=== PATIENT | female | born 1985 | race African-American/Black ===

== ENCOUNTER 2017-04-15 20:13 | Emergency (ER) | payer MEDICAID ==
[~2017-04-15] VITALS: Ht 172.7 cm; Wt 117.9 kg
[~2017-04-15 20:13] MED LIST: GUAIFENESIN-CO118 M1 ORAL; NYQUIL D COLD295 M1 PO; PREDNISONE20 MG ORAL
[2017-04-15] MEDS ORDERED: CLARITIN-D 121 EAC1 ORAL (20:23)
[2017-04-15 20:40] VITALS: BP 121/69
[2017-04-15] MEDS ORDERED: Morphine Sulfate 4mg/ml Inj IVP ONE (20:45)
[2017-04-15] MEDS ORDERED: Metoclopramide 10mg/2ml Inj IVP ONE (20:45)
[2017-04-15 20:53] LABS: BASOPHILS % (AUTO) 0.7 % (0.0-2.0); EOSINOPHILS % (AUTO) 0.1 % (0.0-3.0); LYMPHOCYTES % (AUTO) 13.3 % (20.0-45.0); MEAN CORPUSCULAR HEMOGLOBIN 26.9 PG (27.0-31.0); MEAN CORPUSCULAR HGB CONC 32.8 G/DL (32.0-36.0); MEAN CORPUSCULAR VOLUME 82 FL (80-99); MEAN PLATELET VOLUME 7.3 FL (6.5-10.1); MONOCYTES % (AUTO) 4.2 % (1.0-10.0); NEUTROPHILS % (AUTO) 81.7 % (45.0-75.0); PLATELET COUNT 232 K/UL (150-450); RED BLOOD COUNT 4.66 M/UL (4.20-5.40); RED CELL DISTRIBUTION WIDTH 13.9 % (11.6-14.8); WHITE BLOOD COUNT 15.1 K/UL (4.8-10.8)
[2017-04-15 21:02] LABS: APPEARANCE,URINE CLEAR; KETONES,URINE NEGATIVE (NEGATIVE); LEUKOCYTE ESTERASE ,URINE 1+ (NEGATIVE); NITRITE,URINE NEGATIVE (NEGATIVE); PH,URINE 6 (4.5-8.0); PROTEIN,URINE NEGATIVE (NEGATIVE); UROBILINOGEN,URINE NORMAL MG/DL (0.0-1.0)
[2017-04-15 21:12] LABS: ALANINE AMINOTRANSFERASE 9 U/L (3-33); ALBUMIN/GLOBULIN RATIO 1.2 (1.0-2.7); ANION GAP 11 (5-15); ASPARTATE AMINO TRANSFERASE 14 U/L (5-40); CALCIUM 9.2 mg/dL (8.6-10.2); CARBON DIOXIDE 25 mEQ/L (20-30); CHLORIDE 97 mEQ/L (98-107); CREATININE 0.9 mg/dL (0.5-0.9); GLOMERULAR FILTRATION RATE > 60 mL/min (>60); HEMOLYSIS 3; LIPASE 15 U/L (< 60); POTASSIUM 3.9 mEQ/L (3.4-4.9); SODIUM 133 mEQ/L (135-145); TOTAL PROTEIN 7.4 g/dL (6.6-8.7)
[2017-04-15 21:15] LABS: RBC,URINE 0-2 /HPF (0 - 2)
[2017-04-15 21:16] LABS: BACTERIA,URINE OCCASIONAL /HPF; SQUAMOUS EPITHELIAL CELL,UR MODERATE /LPF (NONE/OCC)
[2017-04-15 21:56] VITALS: BP 123/66
--- NOTE | 2017-04-15 21:56 | Emergency Room Report ---
History of Present Illness General Chief Complaint: Abdominal Pain Source: Patient (ROMEO DELVALLE M.D.) Present Illness HPI 31-year-old female presents to ER complaining of abdominal pain. States pain started yesterday. Mid abdomen, sharp, 8/10, nonradiating. Denies fevers chills. Denies nausea or vomiting. Denies dysuria or hematuria. No other aggravating or relieving factors. Denies any other associated symptoms (ROMEO DELVALLE M.D.) Allergies: Coded Allergies: No Known Allergies (Unverified , 11/27/13) Patient History Past Medical History: none Past Surgical History: none Pertinent Family History: none Social History: Denies: alcohol use, drug use, smoking Last Menstrual Period: 04/06/17 Now: No : 4 Para: 4 Immunizations: UTD Reviewed Nursing Documentation: PMH: Agreed, PSxH: Agreed (ROMEO DELVALLE M.D.) Nursing Documentation-PMH Past Medical History: No Stated History (ROMEO DELVALLE M.D.) Review of Systems All Other Systems: negative except mentioned in HPI (ROMEO DELVALLE M.D.) Physical Exam Vital Signs Date Time Temp Pulse Resp B/P Pulse Ox O2 Delivery O2 Flow Rate FiO2 04/15/17 20:19 100.2 115 18 121/69 98 Room Air Sp02 EP Interpretation: reviewed, normal General Appearance: no apparent distress, alert, GCS 15, non-toxic, obese Head: normocephalic, atraumatic Eyes: bilateral eye PERRL, bilateral eye normal inspection ENT: hearing grossly normal, normal pharynx, no angioedema, normal voice Neck: full range of motion, supple/symm/no masses Respiratory: chest non-tender, lungs clear, normal breath sounds, speaking full sentences Cardiovascular #1: regular rate, rhythm, no edema Cardiovascular #2: 2+ carotid (R), 2+ carotid (L), 2+ radial (R), 2+ radial (L) , 2+ dorsalis pedis (R), 2+ dorsalis pedis (L) Gastrointestinal: normal bowel sounds, soft, non-distended, no guarding, no rebound, tenderness Rectal: deferred Genitourinary: normal inspection, no CVA tenderness Musculoskeletal: back normal, gait/station normal, normal range of motion, non- tender Neurologic: alert, oriented x3, responsive, motor strength/tone normal, sensory intact, speech normal Psychiatric: judgement/insight normal, memory normal, mood/affect normal, no suicidal/homicidal ideation Reflexes: 3+ bicep (R), 3+ bicep (L), 3+ tricep (R), 3+ tricep (L), 3+ knee (R) , 3+ knee (L) Skin: normal color, no rash, warm/dry, well hydrated Lymphatic: no adenopathy (ROMEO DELVALLE M.D.) Medical Decision Making Diagnostic Impression: Primary Impression: Enteritis Labs Test 04/15/17 20:45 White Blood Count 15.1 K/UL (4.8-10.8) Red Blood Count 4.66 M/UL (4.20-5.40) Hemoglobin 12.5 G/DL (12.0-16.0) Hematocrit 38.1 % (37.0-47.0) Mean Corpuscular Volume 82 FL (80-99) Mean Corpuscular Hemoglobin 26.9 PG (27.0-31.0) Mean Corpuscular Hemoglobin Concent 32.8 G/DL (32.0-36.0) Red Cell Distribution Width 13.9 % (11.6-14.8) Platelet Count 232 K/UL (150-450) Mean Platelet Volume 7.3 FL (6.5-10.1) Neutrophils (%) (Auto) 81.7 % (45.0-75.0) Lymphocytes (%) (Auto) 13.3 % (20.0-45.0) Monocytes (%) (Auto) 4.2 % (1.0-10.0) Eosinophils (%) (Auto) 0.1 % (0.0-3.0) Basophils (%) (Auto) 0.7 % (0.0-2.0) Urine Color Pale yellow Urine Appearance Clear Urine pH 6 (4.5-8.0) Urine Specific [place] 1.005 (1.005-1.035) Urine Protein Negative (NEGATIVE) Urine Glucose (UA) Negative (NEGATIVE) Urine Ketones Negative (NEGATIVE) Urine Occult Blood Negative (NEGATIVE) Urine Nitrite Negative (NEGATIVE) Urine Bilirubin Negative (NEGATIVE) Urine Urobilinogen Normal MG/DL (0.0-1.0) Urine Leukocyte Esterase 1+ (NEGATIVE) Urine RBC 0-2 /HPF (0 - 2) Urine WBC 2-4 /HPF (0 - 2) Urine Squamous Epithelial Cells Moderate /LPF (NONE/OCC) Urine Bacteria Occasional /HPF (NONE) Urine HCG, Qualitative Negative Sodium Level 133 mEQ/L (135-145) Potassium Level 3.9 mEQ/L (3.4-4.9) Chloride Level 97 mEQ/L (98-107) Carbon Dioxide Level 25 mEQ/L (20-30) Anion Gap 11 (5-15) Blood Urea Nitrogen 10 mg/dL (7-23) Creatinine 0.9 mg/dL (0.5-0.9) Estimat Glomerular Filtration Rate > 60 mL/min (>60) Glucose Level 115 mg/dL (74-106) Calcium Level 9.2 mg/dL (8.6-10.2) Total Bilirubin 0.5 mg/dL (0.0-1.2) Aspartate Amino Transf (AST/SGOT) 14 U/L (5-40) Alanine Aminotransferase (ALT/SGPT) 9 U/L (3-33) Alkaline Phosphatase 79 U/L (35-104) Total Protein 7.4 g/dL (6.6-8.7) Albumin 4.1 g/dL (3.5-5.2) Globulin 3.3 g/dL Albumin/Globulin Ratio 1.2 (1.0-2.7) Lipase 15 U/L (< 60) (ROMEO DELVALLE M.D.) ER Course Received signout from Dr Alexandre to review CTAP and re-eval CTAP: c/w enteritis Labs with 15K leuks Still with abd cramping, nausea Additional meds given in ED Will DX with abx given leuks Rx Pepcid as well PMD followup as needed BRAT diet (AURORA ESTRADA M.D.) Last Vital Signs Date Time Temp Pulse Resp B/P Pulse Ox O2 Delivery O2 Flow Rate FiO2 04/15/17 20:40 100.2 18 121/69 98 Room Air 04/15/17 20:19 115 (ROMEO DELVALLE M.D.) Status: improved (AURORA ESTRADA M.D.) Disposition: HOME, SELF-CARE Scripts Famotidine (PEPCID) 20 Mg Tablet 20 MG ORAL BID for 7 Days, #14 TAB 0 Refills Prov: AURORA ESTRADA M.D. 04/15/17 Ciprofloxacin Hcl* (CIPROFLOXACIN HCL*) 500 Mg Tablet 500 MG ORAL Q12H for 7 Days, #14 TAB 0 Refills Prov: AURORA ESTRADA M.D. 04/15/17 Metronidazole* (FLAGYL*) 500 Mg Tablet 500 MG ORAL THREE TIMES A DAY for 7 Days, #21 TAB 0 Refills Prov: AURORA ESTRADA M.D. 04/15/17 Referrals: [facility],REF (PCP) ROMEO DELVALLE M.D. Apr 15, 2017 21:56 AURORA ESTRADA M.D. Apr 15, 2017 23:54
[2017-04-15] MEDS ORDERED: CIPROFLOXACIN500 M2 ORAL (22:30)
[2017-04-15] MEDS ORDERED: METRONIDAZOLE500 MG ORAL (22:30)
[2017-04-15] MEDS ORDERED: PEPCID20 MG ORAL (22:32)
[2017-04-15] MEDS ORDERED: Famotidine 20 MG/ 2ML VIAL IVP ONE (22:45)
[2017-04-15 22:46] VITALS: BP 143/73
--- NOTE | 2017-04-16 09:13 | Diagnostic Imaging Report ---
Indication: Abdominal pain Technique: Continuous helical transaxial imaging of the abdomen and pelvis was obtained from the lung bases to the pubic symphysis during intravenous contrast administration. Coronal 2-D reformats were also obtained. Study obtained in a Siemens sensation [address] Total Dose length Product (DLP): [address] Dose Index Volume (CTDIvol): 19 mGy Comparison: None Findings: The lung bases are clear. Solid organs including the liver, pancreas, spleen and kidneys appear normal. Gallbladder is unremarkable. Mildly distended loops of fluid-filled small bowel are noted. Enteritis is possible. Bladder and uterus noted and grossly unremarkable. No free fluid or free air identified. Partial visualization of a normal appendix demonstrated. The study is limited due to body habitus related artifact. Impression: Possible enteritis. Please correlate clinically. Limited evaluation due to body habitus issues The CT scanner at [facility] is accredited by the [employer] and the scans are performed using dose optimization techniques as appropriate to a performed exam including Automatic Exposure control.
== END 2017-04-15 22:46 | disposition home or self-care (01) ==
LOC: EMR 21:03
DX: K52.9 Noninfective gastroenteritis and colitis, unspecified (principal)
CPT/HCPCS: 36415; 74177; 80053; 81003; 81025; 83690; 85025; 96374; 96375; 99284; J2270; J2765; Q9967

== ENCOUNTER 2017-08-06 09:14 | Emergency (ER) | payer MEDICAID ==
[~2017-08-06] VITALS: Ht 172.7 cm; Wt 106.6 kg
[~2017-08-06 09:14] MED LIST changes: +CIPROFLOXACIN500 M2 ORAL; +CLARITIN-D 121 EAC1 ORAL; +METRONIDAZOLE500 MG ORAL; +PEPCID20 MG ORAL
[2017-08-06] MEDS ORDERED: FERROUS SULFAT325 MG ORAL (09:23)
[2017-08-06 09:37] LABS: APPEARANCE,URINE CLEAR; KETONES,URINE NEGATIVE (NEGATIVE); LEUKOCYTE ESTERASE ,URINE 1+ (NEGATIVE); NITRITE,URINE NEGATIVE (NEGATIVE); PH,URINE 7 (4.5-8.0); PROTEIN,URINE NEGATIVE (NEGATIVE); UROBILINOGEN,URINE NORMAL MG/DL (0.0-1.0)
[2017-08-06] MEDS: Azithromycin 250mg tab ORAL ONE (09:47)
--- NOTE | 2017-08-06 09:51 | Emergency Room Report ---
History of Present Illness General Chief Complaint: Female Urogenital Problems Source: Patient Present Illness HPI Patient reports of vaginal discharge Whitish in nature she also reported some mild dysuria and frequency with urination Patient was told recently by her sexual partner that he had gonorrhea diagnosis Patient denies any fevers denies any chest pain or shortness of breath denies any back or flank pain denies any vomiting or diarrhea Allergies: Coded Allergies: No Known Allergies (Unverified , 11/27/13) Patient History Past Medical History: see triage record Pertinent Family History: none Last Menstrual Period: 07/21/17 Reviewed Nursing Documentation: PMH: Agreed, PSxH: Agreed Nursing Documentation-PMH Past Medical History: No Stated History Review of Systems All Other Systems: negative except mentioned in HPI Physical Exam Vital Signs Date Time Temp Pulse Resp B/P (MAP) Pulse Ox O2 Delivery O2 Flow Rate FiO2 08/06/17 09:17 98.1 87 18 133/83 100 Room Air Sp02 EP Interpretation: reviewed, normal General Appearance: well appearing, no apparent distress Head: normocephalic, atraumatic Eyes: bilateral eye PERRL, bilateral eye EOMI ENT: hearing grossly normal, normal pharynx, TMs + canals normal, uvula midline Neck: full range of motion, supple, no meningismus, no bony tend Respiratory: lungs clear, normal breath sounds, no rhonchi, no respiratory distress, no retraction, no accessory muscle use Cardiovascular #1: normal peripheral pulses, regular rate, rhythm, no edema, no gallop, no JVD, no murmur Gastrointestinal: normal bowel sounds, non tender, soft, no mass, no organomegaly, non-distended, no guarding, no hernia, no pulsatile mass, no rebound Genitourinary: no CVA tenderness Musculoskeletal: normal inspection Neurologic: oriented x3, responsive, inspector balance truing III-XII nml as tested, motor strength/ tone normal, sensory intact Psychiatric: mood/affect normal Skin: normal color, no rash, warm/dry, palpation normal Lymphatic: normal inspection, no adenopathy Medical Decision Making Diagnostic Impression: Primary Impression: Vaginitis Additional Impression: Urethritis ER Course Multiple differentials considered At this time the patient's urine is negative Given the recent history of contact with gonorrhea positive partner patient is treated symptomatically Patient is also referred to gynecology and STD clinic For outpatient specific testing However again at this time treated clinically and symptomatically and requires close followup Labs Test 08/06/17 09:30 Urine Color Pale yellow Urine Appearance Clear Urine pH 7 (4.5-8.0) Urine Specific [place] 1.005 (1.005-1.035) Urine Protein Negative (NEGATIVE) Urine Glucose (UA) Negative (NEGATIVE) Urine Ketones Negative (NEGATIVE) Urine Occult Blood Negative (NEGATIVE) Urine Nitrite Negative (NEGATIVE) Urine Bilirubin Negative (NEGATIVE) Urine Urobilinogen Normal MG/DL (0.0-1.0) Urine Leukocyte Esterase 1+ (NEGATIVE) Urine RBC 0-2 /HPF (0 - 2) Urine WBC 0-2 /HPF (0 - 2) Urine Squamous Epithelial Cells Few /LPF (NONE/OCC) Urine Bacteria Occasional /HPF (NONE) Urine HCG, Qualitative Negative Last Vital Signs Date Time Temp Pulse Resp B/P (MAP) Pulse Ox O2 Delivery O2 Flow Rate FiO2 08/06/17 09:17 98.1 87 18 133/83 100 Room Air Status: improved Disposition: HOME, SELF-CARE Condition: Improved Scripts Metronidazole* (METROGEL-VAGINAL*) 70 Gm Gel.w.appl 1 APPL VAGIN EVERY 12 HOURS, #70 GM Prov: BERTA DICKINSON D.O. 08/06/17 Referrals: NON PHYSICIAN (PCP) Additional Instructions: Patient is provided with the discharge instructions notified to follow up with primary doctor in the next 2-3 days otherwise return to the er with any worsening symptoms. Please note that this report is being documented using DRAGON technology. This can lead to erroneous entry secondary to incorrect interpretation by the dictating instrument. BERTA DICKINSON D.O. Aug 06, 2017 09:51
[2017-08-06 09:59] LABS: RBC,URINE 0-2 /HPF (0 - 2); WBC,URINE 0-2 /HPF (0 - 2)
[2017-08-06 10:00] LABS: BACTERIA,URINE OCCASIONAL /HPF; SQUAMOUS EPITHELIAL CELL,UR FEW /LPF (NONE/OCC)
[2017-08-06 10:04] VITALS: BP 133/83
[2017-08-06] MEDS ORDERED: METROGEL-VAGINA70 G1 VAGIN (10:14)
[2017-08-06 10:17] VITALS: BP 133/83
== END 2017-08-06 10:33 | disposition home or self-care (01) ==
LOC: EMR 09:45
DX: N76.0 Acute vaginitis (principal); N34.2 Other urethritis
CPT/HCPCS: 81003; 81025; 96372; 99283; J0696; Q0144

== ENCOUNTER → 2019-02-25 | Emergency (ER) | payer MEDICAID ==
[~2019-02-25] VITALS: Ht 172.7 cm; Wt 113.4 kg
[~2019-02-25] MED LIST changes: +FERROUS SULFAT325 MG ORAL; +METROGEL-VAGINA70 G1 VAGIN; +Promethazine/DM 6.25mg/5ml ORAL ONE
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
[2019-02-25 22:22] VITALS: BP 121/87
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
--- NOTE | 2019-02-26 00:03 | NUR ---
ER DISCHARGE NOTE: Patient is cleared to be discharged per ERMD, pt is aox4, on room air, with stable vital signs. pt was given dc and prescription instructions, pt was able to verbalize understanding, pt id band and iv site removed without complications. pt is able to ambulate with steady gait. pt took all belongings.
[2019-02-26 00:06] VITALS: BP 121/87
== END | disposition home or self-care (01) ==
LOC: EMR 22:44
DX: T59.811A Toxic effect of smoke, accidental (unintentional), initial encounter (principal); J70.5 Respiratory conditions due to smoke inhalation; Y92.810 Car as the place of occurrence of the external cause
CPT/HCPCS: 99282

== ENCOUNTER 2020-10-10 18:13 | Emergency (ER) | payer MEDICAID ==
[~2020-10-10] VITALS: Ht 172.7 cm; Wt 117.9 kg
[~2020-10-10 18:13] MED LIST changes: -Promethazine/DM 6.25mg/5ml ORAL ONE
--- NOTE | 2020-10-10 18:44 | Emergency Room Report ---
History of Present Illness General Chief Complaint: Allergic Reaction Source: Patient Present Illness HPI 34-year-old female with no significant past medical history here complaining of generalized pruritus after taking a [place] couple nights ago. Patient reports that she normally does not take [place]. Patient has been a little bit anxious lately as reports" acute shot worried sick about my kids ever since." Reports that she has been having a difficult time sleeping. Last night her mom gave her 3 pills to help her sleep with total dose being Ash[place] 10 mg each and 1 Seroquel. Patient reported that she got scared and did not take the Seroquel. However took one of the [place] tablets and started having pruritus all over immediately. It started again today. Denies any shortness of breath, anaphylaxis, difficulty breathing or swallowing. No obvious rash noted. Patient also has an extremely dry enzymatic skin which appears to be chronic. Denies chest pain at this time. Denies , abdominal pain, nausea vomiting, headache and dizziness. Patient reports that she had some good news today was told that she can move to a new neighborhood. And is not as worried about her acute safety anymore. Patient denies any SI and HI and any history of anxiety is a clinical diagnosis. Denies . 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: No Patient History Past Medical History: see triage record Past Surgical History: none Pertinent Family History: none Last Menstrual Period: 09/22/20 Now: No Immunizations: UTD Reviewed Nursing Documentation: PMH: Agreed; PSxH: Agreed Nursing Documentation-PMH Past Medical History: No History, Except For Review of Systems All Other Systems: negative except mentioned in HPI Physical Exam Vital Signs Date Time Temp Pulse Resp B/P (MAP) Pulse Ox O2 Delivery O2 Flow Rate FiO2 10/10/20 18:22 98.8 87 17 106/67 (80) 97 Room Air Sp02 EP Interpretation: reviewed, normal General Appearance: no apparent distress, alert, GCS 15, non-toxic Head: normocephalic, atraumatic Eyes: bilateral eye normal inspection, bilateral eye PERRL ENT: hearing grossly normal, normal pharynx, no angioedema, normal voice Neck: full range of motion, supple/symm/no masses Respiratory: chest non-tender, lungs clear, normal breath sounds, speaking full sentences Cardiovascular #1: regular rate, rhythm, no edema Cardiovascular #2: 2+ carotid (R), 2+ carotid (L), 2+ radial (R), 2+ radial (L), 2+ dorsalis pedis (R), 2+ dorsalis pedis (L) Gastrointestinal: normal bowel sounds, non tender, soft, non-distended, no guarding, no rebound Rectal: deferred Genitourinary: no CVA tenderness Musculoskeletal: back normal Neurologic: alert, motor strength/tone normal, oriented x3, sensory intact, responsive, speech normal Psychiatric: judgement/insight normal, memory normal, mood/affect normal, no suicidal/homicidal ideation Skin: rash - Contact dermatitis all over body Lymphatic: no adenopathy Medical Decision Making PA Attestation All diagnoses and treatment plans were reviewed and discussed with my supervising physician Dr. Lopez Diagnostic Impression: Primary Impression: Allergic reaction Additional Impression: Contact dermatitis ER Course 34-year-old female with no significant past medical history here complaining of generalized pruritus after taking a [place] couple nights ago. Patient reports that she normally does not take [place]. Patient has been a little bit anxious lately as reports" acute shot worried sick about my kids ever since." Reports that she has been having a difficult time sleeping. Last night her mom gave her 3 pills to help her sleep with total dose being [place] 10 mg each and 1 Seroquel. Patient reported that she got scared and did not take the Seroquel. However took one of the [place] tablets and started having pruritus all over immediately. It started again today. Denies any shortness of breath, anaphylaxis, difficulty breathing or swallowing. No obvious rash noted. Patient also has an extremely dry enzymatic skin which appears to be chronic. Denies chest pain at this time. Denies , abdominal pain, nausea vomiting, headache and dizziness. Patient reports that she had some good news today was told that she can move to a new neighborhood. And is not as worried about her acute safety anymore. Patient denies any SI and HI and any history of anxiety is a clinical diagnosis. Denies . Ddx considered but are not limited to: Eczema, anaphylaxis, allergic reaction, allergic urticaria, Vital signs: are WNL, pt. is afebrile H&PE are most consistent with: Allergic reaction most likely secondary to [place], contact dermatitis ORDERS: Hydroxyzine to help patient with pruritus as well as anxiety sleeping, Bin Perez, triamcinolone renan, I also wrote for 5 days of prednisone however advised her to start taking it in a few days if hydroxyzine is not helping her reason for not starting prednisone right away is patient level of anxiety and not wanting to make her more anxious. ED INTERVENTIONS: None required at this time. DISCHARGE: At this time pt. is stable for d/c to home. Will provide printed patient care instructions, and any necessary prescriptions. Care plan and follow up instructions have been discussed with the patient prior to discharge. Advised patient to return to emergency room immediately if any anaphylaxis, difficulty breathing, any numbness in hands and feet. Patient reported that she felt a little numbness in fingers today however that went away and not exist anymore. Denies any history of diabetes Last Vital Signs Date Time Temp Pulse Resp B/P (MAP) Pulse Ox O2 Delivery O2 Flow Rate FiO2 10/10/20 18:22 98.8 87 17 106/67 (80) 97 Room Air Disposition: HOME, SELF-CARE Condition: Stable Scripts Prednisone* (PREDNISONE*) 20 Mg Tablet 40 MG ORAL DAILY for 5 Days, #10 TAB Prov: Reji Benavidez PA 10/10/20 Triamcinolone Acetonide (Triamcinolone Acetonide 0.5% Cream*) 15 Gm Cream..g. 2 GM TP TID, #30 GM Prov: Reji Benavidez PA 10/10/20 Fexofenadine/Pseudoephedrine (BIN-D 12 HOUR TABLET) 1 Each Tab.er.12h 1 EACH PO BID, #20 TAB Prov: Reji Benavidez PA 10/10/20 Hydroxyzine HCl (Hydroxyzine HCl) 25 Mg Tablet 25 MG ORAL FOUR TIMES A DAY for 7 Days, #28 TAB Prov: Reji Benavidez PA 10/10/20 Patient Instructions: Allergies, Contact Dermatitis, [id number] Additional Instructions: Take medication as directed, increase oral hydration, avoid taking [place] and Seroquel as are not prescribed to you. If worsening symptom, anaphylaxis, difficulty breathing, or any increased numbness return to the emergency room immediately. Reji Benavidez Oct 10, 2020 18:44
[2020-10-10] MEDS ORDERED: PREDNISONE20 MG ORAL (18:46)
[2020-10-10] MEDS ORDERED: TRIAMCINOLONE A15 G1 TP (18:46)
[2020-10-10] MEDS ORDERED: ATARAX25 MG ORAL (18:46)
[2020-10-10] MEDS ORDERED: ALLEGRA-D 12 H1 EACH PO (18:46)
[2020-10-10 19:00] VITALS: BP 134/88
--- NOTE | 2020-10-10 19:03 | NUR ---
ER DISCHARGE NOTE: Patient is cleared to be discharged per ERMD, pt is aox4, on room air, with stable vital signs. pt was given dc and prescription instructions, pt was able to verbalize understanding, pt id band removed. pt is able to ambulate with steady gait. pt took all belongings.
== END 2020-10-10 19:08 | disposition home or self-care (01) ==
LOC: EMR 18:45
DX: L23.3 Allergic contact dermatitis due to drugs in contact with skin (principal); T39.1X5A Adverse effect of 4-Aminophenol derivatives, initial encounter; Y92.019 Unspecified place in single-family (private) house as the place of occurrence of the external cause
CPT/HCPCS: 99282